=== PATIENT | male | born 1995 | race Caucasian/White ===

== ENCOUNTER 2022-01-27 15:49 | Emergency (ER) | payer SELFPAY ==
[~2022-01-27] VITALS: Ht 167.6 cm; Wt 61.9 kg
[2022-01-27] MEDS ORDERED: LIDOCAINE HCL/MPF 1% 30 ML VIAL IJ ONE (17:13)
[2022-01-27] MEDS ORDERED: TDAP [DIPH/PERTUSSIS/TET] 0.5 ML VIAL IM ONE (17:14)
[2022-01-27] MEDS: TDAP [DIPH/PERTUSSIS/TET] 0.5 ML VIAL IM ONE (17:16)
--- NOTE | 2022-01-27 17:20 | NUR ---
RASHID [employer] CURATOR AT BEDSIDE FOR STAPLING HEAD LACERATION
[2022-01-27] MEDS: LIDOCAINE HCL/PF 1% 30 ML VIAL TP ONE (17:26)
--- NOTE | 2022-01-27 17:27 | NUR ---
REFUSED TO SIGN DISCHARGE PAPER, LEFT FACILITY
[2022-01-27 17:31] VITALS: BP 132/69
== END 2022-01-27 17:31 | disposition home or self-care (01) ==
LOC: ER 15:55
DX: S02.2XXA Fracture of nasal bones, initial encounter for closed fracture (principal); S06.9X0A Unspecified intracranial injury without loss of consciousness, initial encounter; S01.01XA Laceration without foreign body of scalp, initial encounter; Z60.2 Problems related to living alone; Y08.89XA Assault by other specified means, initial encounter; Y93.89 Activity, other specified; Y92.89 Other specified places as the place of occurrence of the external cause; Y99.8 Other external cause status
CPT/HCPCS: 12001; 70450; 70486; 71045; 90471; 90715; 99284; A6403 ×2; J3490 ×2

== ENCOUNTER 2022-02-06 19:29 | Emergency (ER) | payer SELFPAY ==
[~2022-02-06] VITALS: Ht 170.2 cm; Wt 59.0 kg
[2022-02-06 20:08] VITALS: BP 133/70
--- NOTE | 2022-02-06 20:15 | NUR ---
Patient discharged to home in stable condition. Written and verbal after care instructions given. Patient verbalizes understanding of instruction.
== END 2022-02-06 20:15 | disposition home or self-care (01) ==
LOC: ER 19:40
DX: S01.01XD Laceration without foreign body of scalp, subsequent encounter (principal); Z60.2 Problems related to living alone; X58.XXXD Exposure to other specified factors, subsequent encounter

== ENCOUNTER 2022-08-27 20:37 | Emergency (ER) | payer OTHER ==
[~2022-08-27] VITALS: Ht 167.6 cm; Wt 70.3 kg
--- NOTE | 2022-08-27 20:40 | NUR ---
[employer] AND [employer] C/O 2 LAC ON RIGHT UPPER EYE LID RIGHT EYEBROW. PATIENT IS DRUNK, RESTLESS AND SHOUTING. ABLE TO FOLLOW COMMAND. PLACED COMFORTABLY IN BED. VITALS CHECKED.
[2022-08-27] MEDS ORDERED: TDAP [DIPH/PERTUSSIS/TET] 0.5 ML VIAL IM ONE ×2 (20:48→21:00)
[2022-08-27] MEDS ORDERED: LIDOCAINE HCL/MPF 1% 30 ML VIAL IJ ONE (20:48)
[2022-08-27] MEDS ORDERED: LIDOCAINE HCL/PF 1% 30 ML VIAL TP ONE (21:00)
--- NOTE | 2022-08-27 21:48 | NUR ---
Patient discharged to home in stable condition. Written and verbal after care instructions given. Patient verbalizes understanding of instruction.
--- NOTE | 2022-08-27 21:48 | NUR ---
SUTURING OF WOUND DONE BY DR ERICKSON UNDER LOCAL ANESTHESIA.
[2022-08-27 21:51] VITALS: BP 137/77
== END 2022-08-27 21:52 ==
LOC: ER 20:46
DX: S01.111A Laceration without foreign body of right eyelid and periocular area, initial encounter (principal); F17.200 Nicotine dependence, unspecified, uncomplicated; Z60.2 Problems related to living alone; X58.XXXA Exposure to other specified factors, initial encounter; Y93.89 Activity, other specified; Y92.89 Other specified places as the place of occurrence of the external cause; Y99.8 Other external cause status
CPT/HCPCS: 99283; 12011; 90471; 90715; J3490 ×2

== ENCOUNTER 2023-09-30 13:18 | Emergency (ER) | payer OTHER ==
[~2023-09-30] VITALS: Ht 175.3 cm; Wt 63.5 kg
[2023-09-30 13:36] VITALS: BP 121/74; TEMP 98.2
[2023-09-30 15:56] VITALS: O2SAT 98
== END 2023-09-30 15:58 | disposition home or self-care (01) ==
LOC: ER 13:18
DX: S63.92XA Sprain of unspecified part of left wrist and hand, initial encounter (principal); F17.200 Nicotine dependence, unspecified, uncomplicated; Z60.2 Problems related to living alone; X58.XXXA Exposure to other specified factors, initial encounter; Y93.55 Activity, bike riding; Y92.89 Other specified places as the place of occurrence of the external cause; Y99.8 Other external cause status
CPT/HCPCS: 73130-TC